=== PATIENT | female | born 1950 | race Caucasian/White ===

== ENCOUNTER 2017-04-29 10:44 | Outpatient (CLI) | payer MEDICARE, BC ==
--- NOTE | 2017-04-29 14:41 | CT Report ---
CT OF THE CHEST WITHOUT CONTRAST: 04/29/2017 CLINICAL INDICATION: Followup pulmonary nodule. COMPARISON: 04/27/2016, images of the lung bases on abdominal CT of 06/30/2015. TECHNIQUE: Axial CT images of the chest without contrast. FINDINGS: The heart and great vessels are unremarkable. No hilar or mediastinal lymphadenopathy is present. The lungs again demonstrate minimal peripheral fibrosis. The 5 mm nodule in the posterior right lower lobe is stable (axial lung image 47). No effusion or pneumothorax is present. No new pulmonary nodule is identified. Limited evaluation of upper abdominal structures demonstrates normal adrenal glands. 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 IMPRESSION: STABLE 5 MM NODULE IN THE POSTERIOR RIGHT LOWER LOBE. NO SIGNIFICANT INTERVAL CHANGE. In accordance with CT protocol optimization, one or more of the following dose reduction techniques were utilized for this exam: automated exposure control, adjustment of mA and/or KV based on patient size, or use of iterative reconstructive technique. JOB #: [id number] EXT JOB #: [id number] MIKE
== END 2017-04-29 10:45 | disposition home or self-care (01) ==
LOC: DI 10:44
PROVIDERS: ATTEND Internal Medicine
DX: R91.1 Solitary pulmonary nodule (principal)
CPT/HCPCS: 71250

== ENCOUNTER 2017-04-30 10:32 | Outpatient (CLI) | payer MEDICARE, BC ==
--- NOTE | 2017-05-01 16:22 | Mammography Report ---
DIGITAL SCREENING MAMMOGRAM: 04/30/2017 CLINICAL INDICATION: A 66-year-old with family history of breast cancer, for screening. COMPARISON: 04/2016, 04/2015, 04/2014, 02/2013, 09/2011, 02/2010. TECHNIQUE: Routine CC and MLO projections were obtained of the breasts. FINDINGS: Parenchymal tissue within the breasts is predominantly fatty replaced. There are no domina nt masses, suspicious microcalcifications, or secondary signs of malignancy. In comparison to the pre vious studies, there are no significant changes. IMPRESSION: NO MAMMOGRAPHIC EVIDENCE OF MALIGNANCY. NO SIGNIFICANT INTERVAL CHANGES. RECOMMENDATION: Screening mammography is recommended annually. BIRADS category 1 - negative. STANDARD QUALIFYING STATEMENTS 1. This examination was reviewed with the aid of Computed-Aided Detection (CAD). 2. A negative or benign imaging report should not delay biopsy if clinically suspicious findings are present. Consider surgical consultation if warranted. More than 5% of cancers are not identified by i maging. 3. Dense breasts may obscure an underlying neoplasm. JOB #: [id number] EXT JOB #:[id number]
== END 2017-04-30 10:33 | disposition home or self-care (01) ==
LOC: DI 10:32
PROVIDERS: ATTEND Internal Medicine
DX: Z12.31 Encounter for screening mammogram for malignant neoplasm of breast (principal); Z80.3 Family history of malignant neoplasm of breast
CPT/HCPCS: 77067

== ENCOUNTER 2018-05-23 10:33 | Outpatient (CLI) | payer MEDICARE, BC ==
--- NOTE | 2018-05-26 09:32 | Mammography Report ---
Procedure Date: 05/23/2018 Accession Number: [id number] / [id number] Procedure: [facility] - Screening Mammo Dig Bilat CPT Code: FULL RESULT: EXAM: Screening Mammo Dig Bilat DATE: 05/23/2018 10:52 AM CLINICAL HISTORY: Routine screening TECHNIQUE: Bilateral CC and MLO views were obtained. COMPARISON: 04/30/2017, 05/04/2016 and 04/15/2015 FINDINGS: There is extensive fatty replacement of the breast tissue. No significant interval change. No suspicious masses, clustered microcalcifications, or regions of architectural distortion are identified. IMPRESSION: Benign findings RECOMMENDATION: Routine annual screening unless otherwise clinically indicated. BIRADS CATEGORY 1: Negative STANDARD QUALIFYING STATEMENTS: 1. This examination was reviewed with the aid of Computer-Aided Detection (CAD). 2. A negative or benign imaging report should not delay biopsy if clinically suspicious findings are present. Consider surgical consultation if warrented. More than 5% of cancers are not identified by imaging. 3. Dense breasts may obscure an underlying neoplasm.
== END 2018-05-23 10:34 | disposition home or self-care (01) ==
LOC: DI.N 10:33
PROVIDERS: ATTEND Internal Medicine
DX: Z12.31 Encounter for screening mammogram for malignant neoplasm of breast (principal)
CPT/HCPCS: 77067